=== PATIENT | male | born 1955 | race Caucasian/White ===

== ENCOUNTER 2018-10-16 13:19 | Day surgery (SDC) | payer BC ==
[~2018-10-16] VITALS: Ht 175.3 cm; Wt 92.1 kg
[~2018-10-16 13:19] MED LIST: ASPIR-LOW81 MG PO; EPI EZ PEN1 MG/ML IM; HCTZ 25MG25 MG PO; LISINOPRIL10 MG PO
[2018-10-16 13:41] VITALS: BP 150/97; PULSE 115; TEMP 98.8
[2018-10-16] MEDS ORDERED: ALLEGRA ALLERG180 MG PO (13:47)
[2018-10-16] MEDS ORDERED: MICROZIDE12.5 MG PO ×2 (13:48→14:44)
[2018-10-16] MEDS ORDERED: TOPROL XL 50MG50 MG PO (13:50)
[2018-10-16] MEDS ORDERED: MULTI VITAMINS1 TAB PO (13:51)
[2018-10-16] MEDS ORDERED: OMEGA-3 FISH1000 MG PO (13:52)
[2018-10-16] MEDS ORDERED: ZOCOR 20MG20 MG PO (13:53)
[2018-10-16] MEDS ORDERED: TAMBOCOR 1100 MG/TAB PO ×2 (13:55→14:43)
[2018-10-16] MEDS ORDERED: ZEBETA 5MG5 MG PO (13:56)
[2018-10-16] MEDS ORDERED: XARELTO20 MG PO (14:05)
[2018-10-16 14:09] LABS: HEMATOCRIT 44.3 % (42.0-52.0); HEMOGLOBIN 14.5 g/dl (13.5-18.0); MEAN CELL VOLUME 85 fl (80.0-100.0); MEAN CORPUSCULAR HEMOGLOBIN 28 pg (27.0-31.0); MEAN CORPUSCULAR HGB CONC 33 g/dl (33.0-37.0); MEAN PLATELET VOLUME 9.3 fl (7.4-10.4); PLATELET COUNT 271 K/mm3 (130-400); RED BLOOD COUNT 5.22 M/mm3 (4.20-5.60); REDCELL DISTRIBUTION WIDTH-CV 13.2 % (11.5-14.5)
[2018-10-16 14:13] LABS: INR 1.6 (0.8-3.0); PROTHROMBIN TIME 19.2 SECONDS (9.7-12.8)
[2018-10-16 14:17] LABS: CALCIUM 9.7 mg/dL (8.4-10.2); CREATININE, serum 1.32 (0.66-1.25)
[2018-10-16 14:52] VITALS: BP 106/64; PULSE 63
[2018-10-16 14:55] VITALS: BP 97/76; PULSE 65
[2018-10-16 15:10] VITALS: BP 113/71; PULSE 62
[2018-10-16 15:25] VITALS: BP 124/79; PULSE 62
[2018-10-16 15:40] VITALS: BP 129/81; PULSE 63
--- NOTE | 2018-10-16 15:43 | NUR ---
Discharge instructions given to pt.Pt verbalizes understanding.INt removed,cathetr tip intact.
--- NOTE | 2018-10-16 15:50 | NUR ---
Pt escorted via ambulatory.Pt refuses offer of wheelchair.
== END 2018-10-16 15:53 | disposition home or self-care (01) ==
LOC: COL.CAR 13:19
PROVIDERS: Internal Medicine Cardiovascular Disease
DX: I48.91 Unspecified atrial fibrillation (principal); I10 Essential (primary) hypertension; E78.5 Hyperlipidemia, unspecified; I34.0 Nonrheumatic mitral (valve) insufficiency; Z91.030 Bee allergy status; Z79.82 Long term (current) use of aspirin; Z79.01 Long term (current) use of anticoagulants; Z82.49 Family history of ischemic heart disease and other diseases of the circulatory system
CPT/HCPCS: J2704; J7120